=== PATIENT | female | born 1970 | race Caucasian/White ===

== ENCOUNTER 2024-01-18 09:03 | Day surgery (SDC) | payer OTHER ==
[2024-01-18 09:41] LABS: Absolute Monocytes 0.5 K/uL (0.1-1.3); Absolute Neutrophil 4.2 K/uL (1.8-8.0); Basophils % 0.6 % (0-1.3); Eosinophils % 0.7 % (0-4.4); Hematocrit 42.2 % (36.0-45.0); Hemoglobin 14.2 g/dL (12.0-15.0); Lymphocytes % 17.7 % (15.3-44.8); MCHC 33.5 g/dL (32.0-36.0); MCV 92.4 fL (80-100); MPV 7.7 fL (7.6-11.3); Monocytes % 8.5 % (3.3-12.3); Neutrophils % 72.5 % (41.7-73.7); Platelets 373 thou/uL (152-406); RBC Red Blood Cell Count 4.57 M/uL (3.86-4.86); Red Cell Distribution Width 14.5 % (12.1-15.2)
[2024-01-18 10:01] LABS: Anion Gap 8.7 mEq/L (5.0-15.0); Potassium 3.7 mEq/L (3.5-5.1)
[2024-01-18] MEDS: FENTANYL CITR 100 MCG/2 ML IV ONE (10:45)
--- NOTE | 2024-01-18 12:42 | EKG ---
Test Date: 2024-01-18 Test Time: 09:23:22 Guide Plant: PREO MEASUREMENT RESULTS: Intervals: Rate: 67 IN: 150 QRSD: 76 QT: 420 QTc: 443 [place]: P: 63 IN: 150 QRS: 46 T: 64 INTERPRETIVE STATEMENTS: Normal sinus rhythm Cannot rule out Anterior infarct, age undetermined Abnormal ECG No previous ECG available for comparison Electronically Signed On 01-18-24 12:41:17 CDT by Eh Cash
--- NOTE | 2024-01-18 12:57 | P.OP ---
Preoperative diagnosis: thrombosed hemorrhoids Postoperative diagnosis: thrombosed hemorrhoids Primary procedure: Exam under anesthesia Secondary procedure: Excision of 2 columns of hemorrhoids Anesthesia: GETA + Local Estimated blood loss: <10cc Specimen: Hemorrhoids Findings: Large Thrombosed hemorrhoids Grade IV Complications: None Transferred to: Recovery Room Condition: Good
[2024-01-18] MEDS: HYDROMORPHONE HCL 1 MG/ML INJ ONE (13:40)
[2024-01-18 13:56] VITALS: O2SAT 95
[2024-01-18 15:22] VITALS: BP 114/71; TEMP 97.8
--- NOTE | 2024-01-18 18:07 | OP ---
Date of Procedure: 01/18/2024 Surgeon: Kvng Bingham MD, Preoperative Diagnosis: Thrombosed hemorrhoids. Postoperative Diagnosis: Thrombosed hemorrhoids. Procedures: 1.Exam under anesthesia. 2.Excision of 2 columns of thrombosed hemorrhoids. Anesthesia: General endotracheal plus local with 1% lidocaine with epinephrine. Estimated Blood Loss: 10 cc. Specimen: Hemorrhoids. Findings: Large grade 4 thrombosed hemorrhoids noted. Complications: None. Disposition: The patient was transferred to recovery room in good condition. Procedure In Detail: After informed consent was obtained, patient was brought to the operating room, prepped and draped in the usual sterile fashion after adequate anesthesia was achieved. I performed anoscopy to examine the area of the anus which had 2 large columns of thrombosed internal/external a nal hemorrhoids. At this point, I demarcated the area using electrocautery circumferentially around dissecting out the area to be demarcated for 2 thrombosed hemorrhoidal columns. At this point, after I demarcated the skin, I used the LigaSure device to separate the muscular plane from the thrombosed hemorrhoids. At this point, I removed them using a LigaSure device keeping the muscle intact and pe eling the thrombosed hemorrhoid away from the muscular tissues. At this point, these were ligated us ing LigaSure device and sent off for pathologic examination. The area was copiously irrigated multip le times until completely clear. I then reapproximated the anal mucosa with the perianal skin using a combination of interrupted and running 3-0 chromic gut suture with good approximation of tissues. I then placed a Gelfoam pack soaked in lidocaine jelly into the anus partially protruding to allow fo r additional anesthesia and a sterile dressing placed over top. The patient tolerated the procedure without incident or complication and transferred to PACU in good condition. All counts were correct at the end of the case. TK/MODL Voice ID: [id number] Report ID: [id number]
== END 2024-01-18 14:50 | disposition home or self-care (01) ==
LOC: OR 09:03
PROVIDERS: ATTEND Surgery
PROC: 06BY0ZC Excision of Hemorrhoidal Plexus, Open Approach (ICD-10-PCS; principal; 2024-01-18 11:30)
DX: K64.3 Fourth degree hemorrhoids (principal)
CPT/HCPCS: 93005; 85025; 80048; 36415; 88304; 46260; J1170